=== PATIENT | male | born 1945 | race Caucasian/White ===

== ENCOUNTER 2019-01-23 16:30 | Emergency (ER) | payer OTHER ==
--- NOTE | 2019-01-23 16:44 | EDM.PDOC ---
ED HPI GENERAL MEDICAL PROBLEM - General Chief Complaint: General Stated Complaint: RACING HEART Time Seen by Provider: 01/23/19 16:32 Source of Information: Reports: Patient, Family (son) History Limitations: Reports: No Limitations - History of Present Illness INITIAL COMMENTS - FREE TEXT/NARRATIVE: Patient presents with feeling of palpitations, fast heart rate and mild lightheadedness. No chest pressure or pain. No pain in jaw, neck, arm or shoulder. He noticed the fast heart rate about 5 hours ago but the palpitations started a little over 2 hours ago. He had two stents placed 8 years ago after an episode of chest pressure but no NM. He denies feelings similar to that today. He had a nuclear stress test one month ago that was good. He is aware that cardiac chest pain is typically worsened by exertion and denies any of that. He tried to trigger it by doing some squats but no symptoms. He also did 36 pushups yesterday without symptoms. He takes long- acting metoprolol qhs for tachycardia and takes Xanax most nights for anxiety and sleep-aid. Patient and his son are here from [place], [place] for duck hunting. - Related Data Allergies Allergy/AdvReac Type Severity Reaction Status Date / Time No Known Allergies Allergy Verified 01/23/19 16:38 Home Meds: Home Meds Ascorbate Calcium [Vitamin C] 500 mg PO DAILY 01/23/19 [History] Aspirin [Halfprin] 162 mg PO DAILY 01/23/19 [History] Lisinopril 40 mg PO DAILY 01/23/19 [History] Magnesium 30 mg PO DAILY 01/23/19 [History] Metoprolol Succinate 25 mg PO DAILY 01/23/19 [History] Multivitamin [One-Daily Multi-Vitamin] 1 each PO DAILY 01/23/19 [History] Ubidecarenone [Co Q-10] 10 mg PO DAILY 01/23/19 [History] amLODIPine [Norvasc] 5 mg PO DAILY 01/23/19 [History] ED ROS GENERAL - Review of Systems Review Of Systems: See Below Constitutional: Denies: Fever, Chills, Malaise, Weakness HEENT: Denies: Ear Pain, Throat Pain, Vision Change Respiratory: Denies: Shortness of Breath, Cough Cardiovascular: Reports: Lightheadedness, Palpitations. Denies: Chest Pain, Dyspnea on Exertion, Syncope GI/Abdominal: Denies: Abdominal Pain, Diarrhea, Vomiting : Denies: Dysuria, Flank Pain Musculoskeletal: Denies: Neck Pain, Shoulder Pain, Arm Pain, Back Pain, Hand Pain, Leg Pain Skin: Denies: Cyanosis, Jaundice, Mottled, Pallor, Diaphoresis Neurological: Denies: Confusion, Dizziness, Headache, Seizure, Syncope, Trouble Speaking, Difficulty Walking Psychiatric: Denies: Agitation, Anxiety, Confusion ED EXAM, GENERAL - Physical Exam Exam: See Below Exam Limited By: No Limitations General Appearance: Alert, WD/WN, No Apparent Distress Eye Exam: Bilateral Eye: EOMI, Normal Inspection, PERRL Ears: Normal External Exam, Hearing Grossly Normal Nose: Normal Inspection, No Blood Throat/Mouth: Normal Inspection, Normal Lips, Normal Voice, No Airway Compromise Head: Atraumatic, Normocephalic Neck: Normal Inspection, Supple, Non-Tender, Full Range of Motion. No: Carotid Bruit Respiratory/Chest: No Respiratory Distress, Lungs Clear, Normal Breath Sounds, No Accessory Muscle Use, Chest Non-Tender Cardiovascular: Normal Peripheral Pulses, Regular Rate, Rhythm, No Edema, No Gallop, No JVD, No Murmur, No Rub Peripheral Pulses: 2+: Carotid (L), Carotid (R), Radial (L), Radial (R), Posterior Tibial (L), Posterior Tibial (R) GI/Abdominal: Normal Bowel Sounds, Soft, Non-Tender, No Organomegaly, No Distention Back Exam: Normal Inspection, Full Range of Motion. No: CVA Tenderness (L), CVA Tenderness (R) Extremities: Normal Inspection, Normal Range of Motion, Non-Tender, No Pedal Edema Neurological: Alert, Oriented, Normal Cognition, No Motor/Sensory Deficits Psychiatric: Normal Affect, Normal Mood Skin Exam: Warm, Dry, Intact, Normal Color, No Rash Course - Vital Signs Last Recorded V/S: Last Vital Signs Temp 97.9 F 01/23/19 16:30 Pulse 89 01/23/19 19:08 Resp 13 01/23/19 16:58 BP 136/78 01/23/19 19:08 Pulse Ox 97 01/23/19 16:58 - Orders/Labs/Meds Labs: Laboratory Tests 01/23/19 01/23/19 01/23/19 Range/Units 17:14 17:14 20:15 WBC 7.96 (5.00-10.00) 10^3/uL RBC 4.47 L (4.50-6.00) 10^6/uL Hgb 14.5 (13.0-17.0) g/dL Hct 41.0 (40.0-52.0) % MCV 91.7 (82.0-92.0) fL MCH 32.4 H (27.0-31.0) pg MCHC 35.4 (32.0-36.0) g/dL RDW 12.4 (11.5-14.5) % Plt Count 260 (150-400) 10^3/uL MPV 8.6 (7.4-10.4) fL Immature Gran % (Auto) 0.1 (0.0-5.0) % Neut % (Auto) 69.6 (50.0-70.0) % Lymph % (Auto) 20.0 (20.0-40.0) % Grimes % (Auto) 8.4 H (2.0-8.0) % Eos % (Auto) 1.4 (1.0-3.0) % Baso % (Auto) 0.5 (0.0-1.0) % Immature Gran # (Auto) 0.01 (0.00-0.50) 10^3/uL Neut # (Auto) 5.54 (2.50-7.00) 10^3/uL Lymph # (Auto) 1.59 (1.00-4.00) 10^3/uL Grimes # (Auto) 0.67 (0.10-0.80) 10^3/uL Eos # (Auto) 0.11 (0.10-0.30) 10^3/uL Baso # (Auto) 0.04 (0.00-0.10) 10^3/uL Sodium 136 (136-145) mmol/L Potassium 3.6 (3.3-5.3) mmol/L Chloride 98 (98-115) mmol/L Carbon Dioxide 28.4 (21.0-32.0) mmol/L Anion Gap 13.2 (5-15) mmol/L BUN 13 (6-25) mg/dL Creatinine 0.83 (0.51-1.17) mg/dL Est Cr Clr Drug Dosing 83.16 mL/min Estimated GFR (MDRD) > 60 mL/min Glucose 121 H (75 - 99) mg/dL Calcium 8.8 (8.7-10.3) mg/dL Troponin I < 0.04 < 0.04 (0.00-0.070) ng/mL Meds: Medications Discontinued Medications Generic Name Dose Route Start Last Admin Trade Name Katlin PRN Reason Stop Dose Admin Sodium Chloride 1,000 mls @ 999 mls/hr 01/23/19 18:52 01/23/19 19:07 Normal Saline IV 01/23/19 19:52 Not Given .BOLUS ONE Metoprolol Tartrate 5 mg 01/23/19 18:51 01/23/19 19:06 Lopressor IVPUSH 01/23/19 18:52 Not Given ONETIME ONE Metoprolol Tartrate 50 mg 01/23/19 18:56 01/23/19 19:08 Lopressor PO 01/23/19 18:57 50 mg ONETIME ONE Administration - Re-Assessments/Exams Free Text/Narrative Re-Assessment/Exam: 01/23/19 18:56 HR has been stable in 90's since the initial 103 on arrival. EKG and trop are normal except for an isolated PVC. Will check second troponin after 3 hours. Patient is feeling okay. Discussed findings and plan with him which he agrees with. He tells us he hasn't drank much water. He had a bottle before lunch but has had only 3 cups of coffee since then. Will give some oral water now, he is thirsty, and avoid IV fluids. Will give metoprolol 50 mg po now. 01/23/19 19:24 He has drank 32 ounces of water and heart rate is down to 71 now. He took the metoprolol too but wouldn't be working that quick so I feel the dehydration and caffeine effect were most likely causes. Rhythm strip showed one run of 6 PVC' s while patient was visiting with us; asymptomatic. He tells me that the PVCs were noted when he had his stress test last month and his doctors are aware of it. 01/23/19 21:15 Second troponin is negative also. HR now 64. Patient is feeling well. Discussed findings and treatment plan with the patient. He will follow up with his PCP when he gets back home in about 5 days. Discharged in stable condition. Departure - Departure Time of Disposition: 21:19 Disposition: Home, Self-Care 01 Condition: Good Clinical Impression: Tachycardia with heart rate 100-120 beats per minute, Palpitations, Hypovolemia due to dehydration - Discharge Information Instructions: Palpitations, [id number] Referrals: Clare Ferguson MD [Primary Care Provider] - Forms: ED Department Discharge Additional Instructions: 1. Drink 8 cups of water daily. 2. Take your metoprolol and other medications as directed. 3. Follow up with your PCP when you get back home for recheck and follow up. 4. Return to ER as needed.
--- NOTE | 2019-01-23 17:48 | CR ---
[id number] RAD/RAD Chest PA And Lateral EXAM: RAD Chest PA And Lateral INDICATION: CHEST PAIN,PALPITATIONS. COMPARISON: None. DISCUSSION: Cardiomediastinal silhouette is normal in size and contour. No infiltrate, effusion, pneumothorax, or edema. IMPRESSION: No acute findings. Jose Casas MD 01/23/19 [id number] Thank you for allowing us to participate in the care of your patient.
[2019-01-23 17:50] LABS: ANION GAP 13.2 mmol/L (5-15); CHLORIDE,CL 98 mmol/L (98-115); SODIUM,NA 136 mmol/L (136-145)
[2019-01-23] MEDS: Metoprolol Tartrate 5 MG/5 ML SDV IVPUSH ONE (19:06)
[2019-01-23] MEDS: Sodium Chloride 0.9% 1,000 ML IV ONE (19:07)
[2019-01-23] MEDS: Metoprolol Tartrate 50 MG Tab PO ONE (19:08)
== END 2019-01-23 21:20 | disposition home or self-care (01) ==
LOC: KA.ED 16:30
DX: R00.0 Tachycardia, unspecified (principal); R00.2 Palpitations; E86.1 Hypovolemia; E86.0 Dehydration; Z79.82 Long term (current) use of aspirin; Z79.899 Other long term (current) drug therapy
CPT/HCPCS: 36415; 71046; 80048; 84484; 85025; 93005; 99285-25; A9270-GY